=== PATIENT | female | born 1955 | race Caucasian/White ===

== ENCOUNTER 2017-10-09 21:39 | Emergency (ER) | payer BC ==
[~2017-10-09] VITALS: Ht 157.5 cm; Wt 59.1 kg
[2017-10-09 21:43] VITALS: BP 112/69; TEMP 98.3
[2017-10-09] MEDS ORDERED: PAXIL 10MG10 MG PO (21:47)
[2017-10-09] MEDS ORDERED: LORTABELIX (21:47)
[2017-10-10 00:08] VITALS: PULSE 68
== END 2017-10-10 00:09 | disposition home or self-care (01) ==
LOC: COL.ER 21:39
DX: S61.011A Laceration without foreign body of right thumb without damage to nail, initial encounter (principal); W26.8XXA Contact with other sharp object(s), not elsewhere classified, initial encounter; Y92.009 Unspecified place in unspecified non-institutional (private) residence as the place of occurrence of the external cause

== ENCOUNTER 2017-10-21 16:24 | Emergency (ER) | payer BC ==
[~2017-10-21 16:24] MED LIST: LORTABELIX; PAXIL 10MG10 MG PO
[2017-10-21 16:29] VITALS: BP 128/66; PULSE 61; TEMP 98
== END 2017-10-21 16:33 | disposition home or self-care (01) ==
LOC: COL.ER 16:24
DX: S61.011D Laceration without foreign body of right thumb without damage to nail, subsequent encounter (principal); X58.XXXD Exposure to other specified factors, subsequent encounter

== ENCOUNTER → 2017-12-13 | Outpatient (CLI) | payer BC | LOC: MC.RAD 13:59 | DX: Z12.31 Encounter for screening mammogram for malignant neoplasm of breast (principal) ==

== ENCOUNTER → 2019-01-20 | Outpatient (CLI) | payer BC | LOC: MC.RAD 16:00 | DX: Z12.31 Encounter for screening mammogram for malignant neoplasm of breast (principal) ==

== ENCOUNTER → 2021-10-26 | Outpatient (CLI) | payer BC | LOC: MC.RAD 14:30 | DX: Z12.31 Encounter for screening mammogram for malignant neoplasm of breast (principal) ==